=== PATIENT | female | born 1955 | race Caucasian/White ===

== ENCOUNTER 2023-09-27 13:50 | Emergency (ER) | payer MEDICARE, SELFPAY ==
[2023-09-27 14:06] VITALS: BP 108/78; PULSE 121; RESP 21; TEMP 36.7; O2SAT 96; BMI 42.0
[2023-09-27 14:20] VITALS: BP 135/85; PULSE 109; RESP 20; O2SAT 95
[2023-09-27 14:40] VITALS: BP 136/81; PULSE 104; RESP 20; O2SAT 95
--- NOTE | 2023-09-27 15:01 | HMH.EDGENADL ---
Discharge Plan Disposition Patient Disposition: Home, Self-Care Prescriptions Prescriptions: New cefdinir 300 mg capsule 300 mg PO BID 10 Days Qty: 20 0RF No Action metformin 1,000 mg Tablet 1,000 mg PO BID nitrofurantoin monohyd/m-cryst [Macrobid] 100 mg Capsule 100 mg PO BID Rx Instructions: must administer with a meal/food atorvastatin 40 mg Tablet 40 mg PO DAILY tramadol 50 mg Tablet 50 mg PO Q6H PRN (Reason: Pain) famotidine 20 mg Tablet 20 mg PO DAILY naproxen 500 mg Tablet,Delayed Release (Dr/Ec) 500 mg PO BID PRN (Reason: Pain) methimazole 5 mg Tablet 5 mg PO DAILY hydrochlorothiazide 25 mg Tablet 25 mg PO BID losartan 100 mg Tablet 100 mg PO DAILY ferrous gluconate 324 mg (37.5 mg iron) Tablet 324 mg PO DAILY Referrals Follow up/Referrals: Roni Schmitt MD [Primary Care Provider] - See instructions Activity Restrictions/Add. Instructions Additional Instructions/Restrictions: No evidence of an emergent medical condition associated with your diabetes today. Specifically no evidence of DKA. You still have urinary tract infection with the tenderness of your kidney this is consistent with pyelonephritis. Nitrofurantoin does not get good kidney penetration and I would recommend you stop that medication and start the new medication cefdinir. Follow-up with your primary care doctor in 2 to 3 days for your urine culture results. Return to the emergency room with high fever or any other concerns. Clinical Impressions Clinical Impression: Hyperglycemia, Dehydration, Pyelonephritis Instructions Patient Instructions: DI for Hyperglycemia -- Adult Discharge ED Provider: Yoana Espinoza Adult HPI General Chief complaint: Hyper/Hypoglycemia Stated complaint: High blood sugar Time Seen by Provider: 09/27/23 14:55 Mode of Arrival: Ambulatory Source of Information: Patient and Spouse Limitations: No Limitations Description of Symptoms (Recalled from ER Triage Doc. by RN): Pt. states she took her blood sugar this morning and it was 350 and then again at 1 pm and it was over 500. History of Present Illness HPI narrative: Patient is a 68-year-old female with a history of diabetes last A1c over 7 but has been poorly controlled for extended period of time presents today with dizziness and lightheadedness and elevated blood sugar that was above her ability to read at home today. States she has had bronchitis and urinary tract infection earlier this month also has been on steroids. She is only on metformin at the moment they have been intermittently discussing using insulin but because her A1c went from 9 down to 7 her primary care doctor had been holding off. She has had increased urine output and feeling dizzy over the last several days. She denies any significant abdominal pain chest pain shortness of breath fevers chills etc. Related Data Home Medications Medication Instructions Recorded Confirmed atorvastatin 40 mg tablet 40 mg PO DAILY 09/27/23 09/27/23 famotidine 20 mg tablet 20 mg PO DAILY 09/27/23 09/27/23 ferrous gluconate 324 mg (37.5 mg 324 mg PO DAILY 09/27/23 09/27/23 iron) tablet hydrochlorothiazide 25 mg tablet 25 mg PO BID 09/27/23 09/27/23 losartan 100 mg tablet 100 mg PO DAILY 09/27/23 09/27/23 metformin 1,000 mg tablet 1,000 mg PO BID 09/27/23 09/27/23 methimazole 5 mg tablet 5 mg PO DAILY 09/27/23 09/27/23 naproxen 500 mg tablet,delayed 500 mg PO BID PRN Pain 09/27/23 09/27/23 release nitrofurantoin 100 mg PO BID 09/27/23 09/27/23 monohydrate/macrocrystals 100 mg capsule (Macrobid) tramadol 50 mg tablet 50 mg PO Q6H PRN Pain 09/27/23 09/27/23 Previous Rx's Medication Instructions Recorded cefdinir 300 mg capsule 300 mg PO BID 10 days #20 caps 09/27/23 Allergies Allergy/AdvReac Type Severity Reaction Status Date / Time No Known Allergies Allergy Verified 09/27/23 14:11 [facility] Disclaimer: The information contained in this section may have been updated after the patient was seen, as this information can be updated by other users. Medical History (Updated 09/27/23 @ 17:04 by Maryan Renee MD) Arthritis Diabetes Hyperlipidemia Hypertension UTI (urinary tract infection) Surgical History (Updated 09/27/23 @ 14:14 by Anisa Somers RN) History of hysterectomy History of total right knee replacement Social History (Updated 09/27/23 @ 14:14 by Anisa Somers RN) Smoking Status: Former smoker alcohol intake: never current occupational status: unemployed Travel in the last 8 weeks: None ROS Obtained: Yes All systems reviewed & no additional complaints except as documented Physical Exam General General appearance: alert Respiratory Respiratory exam: Present normal lung sounds bilaterally Cardiovascular Cardiovascular exam: Present tachycardia Abdominal Exam Abdominal exam: Present soft; Absent distention or tenderness Back Exam Back exam: Present CVA tenderness (L) Neurological Exam Neurological exam: Present alert and oriented X3 Medical Decision Making Yoni Inquiry Pt receiving controlled substance: No Vital Signs: 09/27/23 14:06 09/27/23 14:20 09/27/23 14:40 Temperature 98.0 F Temperature Source Oral Pulse Rate 109 H 104 H Pulse Rate [Right Brachial] 121 H Respiratory Rate 21 20 20 Blood Pressure 135/85 136/81 Blood Pressure [Right Arm] 108/78 L Blood Pressure Mean 98 93 Blood Pressure Mean [Right Arm] 88 Blood Pressure Source [Right Arm] Automatic Cuff Blood Pressure Position [Right Arm] Sitting 02 Sat by Pulse Oximetry 96 95 95 Oxygen Delivery Method Room Air Lab Data Lab results reviewed: Yes I reviewed the patient's lab results. Lab Results 09/27/23 15:00: VBG pH 7.36, VBG pCO2 49.1, VBG pO2 29.7, VBG HCO3 27.0, VBG Total CO2 28.5 H, VBG O2 Saturation 56.4, VBG Base Excess 1.5 09/27/23 15:09: WBC 10.9 H, RBC 5.17, Hgb 14.4, Hct 43.6, MCV 84.4, MCH 27.8, MCHC 33.0, RDW 15.1, Plt Count 194, MPV 9.5, Neut % (Auto) 65.2, Lymph % (Auto) 22.9, [place] % (Auto) 5.6, Eos % (Auto) 5.1, Baso % (Auto) 1.1, Neut # (Auto) 7.1, Lymph # (Auto) 2.5, [place] # (Auto) 0.6, Eos # (Auto) 0.6 H, Baso # (Auto) 0.1, Sodium 134 L, Potassium 3.9, Chloride 93 L, Carbon Dioxide 32 H, Anion Gap 12.9, BUN 16, Creatinine 1.00, Estimated Creat Clear 44, Estimated GFR 55 L, Est GFR ( Amer) 67, Glucose 264 H, Calcium 9.7, Phosphorus 3.2, Magnesium 1.3 L, Total Bilirubin 1.0, AST 42 H, ALT 47, Alkaline Phosphatase 120, Total Protein 8.3 H, Albumin 4.7, Globulin 3.6 H, Albumin/Globulin Ratio 1.3 09/27/23 15:12: Urine Color Yellow, Urine Appearance Clear, Urine pH 6.0, Ur Specific [place] 1.020, Urine Protein 1+, Urine Glucose (UA) 2+, Urine Ketones Negative, Urine Blood Negative, Urine Nitrate Negative, Urine Bilirubin 1+ A, Urine Urobilinogen 0.2, Ur Leukocyte Esterase 2+ A, Urine RBC None, Urine WBC 20-50, Ur Squamous Epith Cells 5-10, Urine Bacteria Trace 09/27/23 15:09 09/27/23 15:09 Orders (Tests/Meds): ED MEDICATIONS Generic Name Dose Route Start Last Admin Trade Name Freq PRN Reason Stop Dose Admin Cefdinir 300 mg 09/27/23 17:03 Cefdinir 300mg Capsule PO 09/27/23 17:04 ONCE ONE Discontinued Medications Generic Name Dose Route Start Last Admin Trade Name Freq PRN Reason Stop Dose Admin Lactated Ringer's 1,000 mls @ 999 mls/hr 09/27/23 15:00 09/27/23 15:08 Lactated Ringer's 1000 Ml Bag IV 09/27/23 16:00 999 mls/hr .Q1H1M SOPHY Administration Ondansetron HCl 4 mg 09/27/23 15:00 09/27/23 15:08 Ondansetron 4mg/2ml Vial IV 09/27/23 15:01 4 mg ONCE ONE Administration ORDERS Category Date Time Status CBC w/Auto Diff [Complete Blood Count Auto Diff] Stat Lab 09/27/23 15:09 Completed CMP [Comprehensive Metabolic Panel] Stat Lab 09/27/23 15:09 Completed Magnesium Stat Lab 09/27/23 15:09 Completed Phosphorous Stat Lab 09/27/23 15:09 Completed UA [Urinalysis and Microscopic] Stat Lab 09/27/23 15:12 Completed Urine Culture Stat Micro 09/27/23 15:12 Received Venous Blood Gas Stat RT 09/27/23 15:00 Completed Medical Decision Narrative: Patient is a well-appearing 68-year-old female presenting today with hyperglycemia. Will get blood test to rule out DKA. Her lightheadedness is likely secondary to dehydration from osmotic diuresis. IV fluids Zofran have been administered. She does have some left CVA tenderness recently had urinary tract infection will obtain a urinalysis to make sure she does not have superimposed pyelonephritis. She is mildly tachycardic I suspect from dehydration she does not appear septic at the moment but will reassess. Reassessment 5:04 PM patient feeling much better. Urinalysis demonstrates a persistent urinary tract infection with a CVA tenderness this is consistent with pyelonephritis. She has been on nitrofurantoin this does not get good kidney penetration and I advised that she stop this medication and initiate cefdinir which I prescribed. First dose was given in the emergency department. No evidence of sepsis. No evidence of DKA on labs. Patient will follow-up with primary care doctor in 2 to 3 days for urine culture results and return to the emergency department any worsening symptoms including fever etc. Critical Care Critical Care Time Critical Care Time: No
[2023-09-27] MEDS: LACTATED RINGERS 1000ML 1,000 ML 999 ML IV (15:08)
[2023-09-27] MEDS: ONDANSETRON 4MG/2ML VIAL 4 MG IV (15:08)
[2023-09-27 15:18] LABS: Microscopic, Urine URINE MICROSCOPIC (MICROSCOPIC)
[2023-09-27 15:21] LABS: VBG Base Excess 1.5 mmol/L (-2.4-2.3); VBG Oxygen Saturation 56.4 % (50-70); VBG PCO2 49.1 mmol/L (35-51); VBG PH 7.36 mmol/L (7.31-7.41); VBG PO2 29.7 mmol/L (28-40); VBG Total CO2 28.5 mmol/L (23-27)
[2023-09-27 15:25] LABS: Chloride 93 mmol/L (98-107)
[2023-09-27 15:26] LABS: Appearance,Urine CLEAR (Clear); Blood, Urine Negative (Negative); Color,Urine YELLOW (Yellow); Glucose,Urine (UA) 2+ (Negative); Ketones,Urine Negative (Negative); Leukocyte Esterase,Urine 2+ (Negative); Nitrate,Urine Negative (Negative); Protein,Urine 1+ (Negative); Urobilinogen,Urine 0.2 EU/dl (0.2)
[2023-09-27 15:26] LABS: Potassium 3.9 mmoL/L (3.5-5.1); Sodium 134 mmol/L (136-145)
[2023-09-27 15:27] LABS: Bilirubin,Urine 1+ (Negative)
[2023-09-27 15:28] LABS: Alanine Aminotransferase 47 U/L (12-78); Alkaline Phosphatase 120 U/L (38-126); Anion Gap 12.9 mEq/L (5-15); Aspartate Amino Transferase 42 U/L (14-36); Blood Urea Nitrogen 16 mg/dl (7-17); Carbon Dioxide 32 mmol/L (22.0-30.0); Creatinine Clearance Estimated 44 mL/min (50-200); Estimated Glomerular Filt Rate 55 ml/min (>60); GFR (African American) 67 ML/MIN (>60)
[2023-09-27 15:29] LABS: Albumin Level 4.7 g/dl (3.5-5.0); Albumin/Globulin Ratio 1.3 (1.1-1.8); Calcium 9.7 mg/dl (8.4-10.2); Globulin 3.6 g/dL (1.3-3.2); Glucose 264 mg/dl (74-100); Magnesium 1.3 mg/dl (1.6-2.3); Phosphorous 3.2 mg/dl (2.5-4.5); Total Protein,Serum 8.3 g/dl (6.3-8.2)
[2023-09-27 15:31] LABS: Basophils # 0.1 K/mm3 (0-0.2); Basophils % 1.1 % (0.1-2.0); Eosinophils # 0.6 K/mm3 (0.0-0.4); Eosinophils % 5.1 % (0.1-12.0); Hematocrit 43.6 % (37.0-47.0); Hemoglobin 14.4 g/dL (12.2-16.2); Lymphocytes # 2.5 K/mm3 (0.7-4.5); Lymphocytes % 22.9 % (10-50); Mean Corpuscular Hemoglobin 27.8 pg (27.0-31.2); Mean Corpuscular Volume 84.4 fl (81-99); Mean Platelet Volume 9.5 fl (7.4-10.4); Monocytes # 0.6 K/mm3 (0.1-1.0); Monocytes % 5.6 % (1.7-9.3); Neutrophils # 7.1 K/mm3 (1.8-7.8); Neutrophils % 65.2 % (37.0-80.0); Platelet Count 194 K/mm3 (142-424); Red Blood Count 5.17 M/mm3 (4.20-5.40); Red Cell Distribution Width 15.1 % (11.5-17.5); White Blood Count 10.9 K/mm3 (4.8-10.8)
[2023-09-27 15:36] LABS: Bacteria,Urine Trace /lpf; WBC,Urine 20-50 #/hpf (0-3)
[2023-09-27 17:05] VITALS: BP 140/70; PULSE 72; RESP 20; TEMP 36.6; O2SAT 98
[2023-09-27] MEDS: CEFDINIR 300MG CAPSULE 300 MG PO (17:08)
--- NOTE | 2023-10-03 08:42 | PC.NURSE ---
NTD with urine culture results per , pt was dc with cefdinir
== END 2023-09-27 17:11 | disposition home or self-care (01) ==
PROVIDERS: Student in an Organized Health Care Education/Training Program; Emergency Provider Emergency Medicine; PCP Family Medicine
DX: E11.65 Type 2 diabetes mellitus with hyperglycemia (principal); E86.0 Dehydration; N12 Tubulo-interstitial nephritis, not specified as acute or chronic; R42 Dizziness and giddiness; E78.5 Hyperlipidemia, unspecified; I10 Essential (primary) hypertension; R00.0 Tachycardia, unspecified; Z87.891 Personal history of nicotine dependence
CPT/HCPCS: 80053; 81001; 82803; 83735; 84100; 85025; 87086; 96361; 96374; 99285; J2405

== ENCOUNTER 2024-12-06 10:11 | Emergency (ER) | payer MEDICARE, SELFPAY ==
--- NOTE | 2024-12-06 10:18 | ECG_ITS ---
APPROVED REPORT Exam: Resting ECG HR:108 bpm ECG Measurements Heart Rate 108 AXES TN 165 P 69 QRSd 146 QRS -53 QT 361 T 44 QTc 425 Conclusion SINUS TACHYCARDIA RIGHT BUNDLE BRANCH BLOCK [120+ ms QRS DURATION, UPRIGHT V1, 40+ ms S IN I/aVL/V4/V5/V6] LEFT ANTERIOR FASCICULAR BLOCK [QRS AXIS <= -45, QR IN I, RS IN II] POSSIBLE ANTERIOR MYOCARDIAL INFARCTION , PROBABLY OLD [30 ms Q WAVE IN V3/V4, OR R < 0.2 mV IN V4] INFERIOR MYOCARDIAL INFARCTION , PROBABLY OLD [40+ ms Q WAVE AND/OR ST/T ABNORMALITY IN II/aVF] No STEMI Electronically signed by : HORTENCIA PATEL, 12/07/2024 06:23:55
--- NOTE | 2024-12-06 10:18 | XR_ITS ---
FINAL REPORT CLINICAL HISTORY: palpitations, SOA FINDINGS: No acute pulmonary density is evident. There is no evidence of effusion or other pleural disease. The mediastinum has a normal appearance. The cardiac silhouette is unremarkable. IMPRESSION: Unremarkable chest exam. Reviewed, Interpreted and Dictated by Sonal Huddleston MD Transcribed by Kellie Gallardo Authenticated and [facility]
--- NOTE | 2024-12-06 10:20 | ED_ITS ---
Discharge Plan Disposition Patient Disposition: Home, Self-Care Condition: Good Prescriptions Prescriptions: New propranolol 20 mg tablet 20 mg PO BID Qty: 60 1RF propylthiouracil 50 mg tablet 100 mg PO Q8H 30 Days Qty: 180 1RF No Action Tradjenta 5 mg tablet PO Patient Comments: TAKE ONE (1) TABLET EVERY DAY BY ORAL ROUTE. ferrous sulfate 325 mg (65 mg iron) tablet 325 mg PO DAILY metformin 1,000 mg Tablet 1,000 mg PO BID tramadol 50 mg Tablet 50 mg PO Q6H PRN (Reason: Pain) famotidine 20 mg Tablet 20 mg PO DAILY naproxen 500 mg Tablet,Delayed Release (Dr/Ec) 500 mg PO BID PRN (Reason: Pain) methimazole 5 mg Tablet 5 mg PO DAILY hydrochlorothiazide 25 mg Tablet 25 mg PO BID losartan 100 mg Tablet 100 mg PO DAILY Referrals Follow up/Referrals: Salvatore Mendiola APRN [Primary Care Provider] - See instructions Activity Restrictions/Add. Instructions Additional Instructions/Restrictions: You were evaluated in the emergency department today. Please last picker your prescriptions and take as prescribed. Follow-up very closely with your primary care provider as well as with endocrinology for further evaluation and management. Return to the emergency department for new or worsening symptoms. Clinical Impressions Clinical Impression: Hyperthyroidism, Hypomagnesemia Stand Alone Forms Stand Alone Forms: Work/School Release Instructions Patient Instructions: DI for Hyperthyroidism, DI for Hypomagnesemia Print Language Print Language: Cuban Discharge ED Provider: [facility] General Adult HPI General Chief complaint: Weakness Stated complaint: SOA jaw tightness elevated BP/Pulse Time Seen by Provider: 12/06/24 10:18 History of Present Illness HPI narrative: This patient is a 69-year-old female with a history of hyperthyroidism, hypertension, hyperlipidemia, diabetes, and arthritis presenting to the emergency department for evaluation with concern for palpitations, shortness of breath, and fatigue for the last couple of days. Patient states that she has just been feeling like her heart is fluttering in her chest and like she feels out of breath. She states that she is subconsciously gasping for air without realizing it. She also notes some sinus pressure/congestion as well as diarrhea. She has taken [id number] sinus headache medication at home. She admits to chest pressure but denies true chest pain, abdominal pain, nausea, vomiting, leg swelling. She also denies any history of blood clots or clotting disorders. Related Data Home Medications ?Medication ?Instructions ?Recorded ?Confirmed famotidine 20 mg tablet 20 mg PO DAILY 09/27/23 09/27/23 hydrochlorothiazide 25 mg tablet 25 mg PO BID 09/27/23 09/27/23 losartan 100 mg tablet 100 mg PO DAILY 09/27/23 09/27/23 metformin 1,000 mg tablet 1,000 mg PO BID 09/27/23 09/27/23 methimazole 5 mg tablet 5 mg PO DAILY 09/27/23 09/27/23 naproxen 500 mg tablet,delayed 500 mg PO BID PRN Pain 09/27/23 09/27/23 release tramadol 50 mg tablet 50 mg PO Q6H PRN Pain 09/27/23 09/27/23 ferrous sulfate 325 mg (65 mg 325 mg PO DAILY 06/21/24 iron) tablet linagliptin 5 mg tablet (Tradjenta) mg PO 06/21/24 Previous Rx's ?Medication ?Instructions ?Recorded propranolol 20 mg tablet 20 mg PO BID #60 tabs 12/06/24 propylthiouracil 50 mg tablet 100 mg (2 x 50 mg) PO Q8H 30 days 12/06/24 #180 tabs Allergies Allergy/AdvReac Type Severity Reaction Status Date / Time No Known Allergies Allergy Verified 06/21/24 14:37 [facility] Disclaimer: The information contained in this section may have been updated after the patient was seen, as this information can be updated by other users. Medical History Diabetes Arthritis UTI (urinary tract infection) Hyperlipidemia Hypertension Surgical History History of total right knee replacement History of hysterectomy Social History Smoking Status: Never smoker alcohol intake: never current occupational status: unemployed Travel in the last 8 weeks: None Have you lived/traveled outside [place] in past 30 days?: No Contact w/someone who lives/traveled outside US past 30 days?: No Exposure to someone with infectious disease in past 14 days?: No Do you have a fever (greater than 100.4 F or 38 C)?: No Have you tested positive for COVID-19: No Exposed to someone with COVID-19 in past 14 days?: No Do you have a sore throat?: No Do you have a cough?: No Do you have any weakness?: No Do you have any diarrhea?: No Are you experiencing any unusual bleeding?: No Do you have any muscle aches/pain?: No Do you have any abdominal pain?: No Are you experiencing loss of taste or smell?: No Other Medical History Have you received the Pneumonia Vaccine: No ROS Obtained: Yes All systems reviewed & no additional complaints except as documented Physical Exam General General appearance: alert and in no apparent distress Head Head exam: atraumatic and normocephalic Eye Eye exam: Present normal appearance, PERRL and EOMI ENT ENT exam: Present normal exam, normal oropharynx, mucous membranes moist and normal external ear exam Neck Neck exam: Present normal inspection, full ROM and trachea midline; Absent tenderness Chest Chest inspection: Present normal inspection and symmetric chest wall rise; Absent tenderness Respiratory Respiratory exam: Present normal lung sounds bilaterally; Absent respiratory distress, wheezes, stridor or accessory muscle use Cardiovascular Cardiovascular exam: Present normal rhythm and tachycardia Abdominal Exam Abdominal exam: Present soft; Absent distention, tenderness or guarding Extremities Exam Extremities exam: Present normal inspection, full ROM and normal capillary refill; Absent tenderness or edema Back Exam Back exam: Present normal inspection and full ROM; Absent tenderness Neurological Exam Neurological exam: Present alert, oriented X3, CN II-XII intact and normal gait; Absent motor sensory deficit Psychiatric Psychiatric exam: Present normal affect and normal mood Skin Skin exam: Present warm and dry Medical Decision Making Medical Records Medical records reviewed: Yes I reviewed the patient's medical records. Screening: Per USPSTF and CDC recommendations, given the prevalence of disease in our region, it is our hospital?s policy to screen for HIV and viral Hepatitis for all patients aged 18 and over and those with ongoing risk factors. Yoni Inquiry Pt receiving controlled substance: No Vital Signs: 12/06/24 10:21 12/06/24 10:21 12/06/24 11:00 Temperature 98.1 F Temperature Source Oral Pulse Rate 111 H 114 H Pulse Rate [Left] 109 H Respiratory Rate 20 18 Blood Pressure 174/87 H 172/98 H Blood Pressure [Left Arm] 174/87 H Blood Pressure Mean [Left Arm] 116 Blood Pressure Source Blood Pressure Position 02 Sat by Pulse Oximetry 96 94 L 94 L Oxygen Delivery Method Room Air Room Air Oxygen Flow Rate (LPM) 12/06/24 11:30 12/06/24 12:00 12/06/24 12:24 Temperature 97.6 F Temperature Source Oral Pulse Rate 105 H 99 H 90 Pulse Rate [Left] Respiratory Rate 18 Blood Pressure 165/94 H 172/91 H 172/91 H Blood Pressure [Left Arm] Blood Pressure Mean [Left Arm] Blood Pressure Source Automatic Cuff Blood Pressure Position Sitting 02 Sat by Pulse Oximetry 94 L 94 L Oxygen Delivery Method Nasal Cannula Room Air Oxygen Flow Rate (LPM) 2 Lab Data Lab results reviewed: Yes I reviewed the patient's lab results. Lab Results 12/06/24 10:21: SARS-CoV-2 (PCR) Not detected, Influenza A Untype (PCR) Not detected, Influenza Type B (PCR) Not detected 12/06/24 10:24: WBC 7.8, RBC 5.19, Hgb 13.4, Hct 42.1, MCV 81.1, MCH 25.8 L, MCHC 31.8, RDW 13.4, Plt Count 249, MPV 11.5 H, Neut % (Auto) 54.3, Lymph % (Auto) 32.8, [place] % (Auto) 9.5 H, Eos % (Auto) 1.7, Baso % (Auto) 1.3, Neut # (Auto) 4.2, Lymph # (Auto) 2.6, [place] # (Auto) 0.7, Eos # (Auto) 0.1, Baso # (Auto) 0.1, D-Dimer 0.47, Sodium 137, Potassium 4.0, Chloride 97 L, Carbon Dioxide 29, Anion Gap 15.0, BUN 16, Creatinine 1.00, Estimated Creat Clear 43, E stimated GFR 55 L, Est GFR ( Amer) 67, Glucose 138 H, Calcium 9.8, Phosphorus 2.8, Magnesium 1.4 L, Total Bilirubin 0.5, AST 52 H, ALT 52, Alkaline Phosphatase 71, Troponin I < 0.01, NT-Pro-B Natriuret Pep 22.8, Total Protein 8.0, Albumin 4.7, Globulin 3.3 H, Albumin/Globulin Ratio 1.4, Lipase 200, TSH < 0.02 L, Thyroxine (T4) 15.5 H, HCV Ab NAYANA w/Rflx PCR Qn Negative, HIV Ag/Ab Combo Qual Negative 12/06/24 10:24 12/06/24 10:24 Orders (Tests/Meds): ED MEDICATIONS Discontinued Medications Generic Name Dose Route Start Last Admin Trade Name Kristoferq PRN Reason Stop Dose Admin Lactated Ringer's 1,000 mls @ 999 mls/hr 12/06/24 10:47 12/06/24 10:58 Lactated Ringer's 1000 Ml Bag IV 12/06/24 11:47 999 mls/hr .Q1H1M ONE Administration Magnesium Sulfate 2 gm in 50 mls @ 50 mls/hr 12/06/24 10:55 12/06/24 10:59 Magnesium Sulfate 2gm/50ml Premix IV 12/06/24 11:54 50 mls/hr ONCE ONE Administration Propranolol HCl 20 mg 12/06/24 11:30 12/06/24 11:47 Propranolol 20mg Tab PO 12/06/24 11:31 20 mg ONCE ONE Administration Propylthiouracil 100 mg 12/06/24 11:29 12/06/24 11:47 Propylthiouracil 50mg Tablet PO 12/06/24 11:30 100 mg ONCE ONE Administration ORDERS Category Date Time Status CXR 2 view (NOT portable) [XR chest 2V] Stat Exams 12/06/24 10:18 Completed BNP [NT Pro Brain Natriuretic Pep.] Stat Lab 12/06/24 10:24 Completed Complete Blood Count Auto Diff Stat Lab 12/06/24 10:24 Completed Comprehensive Metabolic Panel Stat Lab 12/06/24 10:24 Completed D-Dimer Stat Lab 12/06/24 10:24 Completed HIV Combo Stat Lab 12/06/24 10:24 Completed Hepatitis C Ab Qual. W/ RFX Stat Lab 12/06/24 10:24 Completed Lipase Stat Lab 12/06/24 10:24 Completed MAG [Magnesium] Stat Lab 12/06/24 10:24 Completed PHOS [Phosphorous] Stat Lab 12/06/24 10:24 Completed Rapid PCR Covid and Flu A/B Stat Lab 12/06/24 10:21 Completed T4 (Thyroxine) Stat Lab 12/06/24 10:24 Completed TSH [Thyroid Stimulating Hormone] Stat Lab 12/06/24 10:24 Completed Trop I [Troponin I] Stat Lab 12/06/24 10:24 Completed Troponin I Q3H Lab 12/06/24 13:30 Ordered Troponin I Q3H Lab 12/06/24 16:30 Ordered ECG Data Tracing #1: I reviewed this ECG and interpreted as documented below: Sinus tachycardia with a ventricular to 108 bpm. Right bundle branch block. Left anterior fascicular block. No acute ST changes concerning for STEMI ECG initial impression date: 12/06/24 ECG initial impression time: 10:19 Medical Decision Narrative: In summary, this patient is a 69-year-old female presenting to the Emergency Department for evaluation of palpitations, shortness of breath, chest pressure, congestion, and diarrhea. Differential diagnoses considered include but are not limited to viral syndrome, pneumonia, ACS, dysrhythmia, hyperthyroidism, electrolyte derangements, PE. Ruling out the most morbid conditions drove assessment. It should be noted patient's history includes hyperthyroidism, hypertension, hyperlipidemia which may or may not be at goal therapy. This complicates all aspects of care by increasing patient's risk for morbidity. I reviewed patient's past medical records and noted prior ENT evaluation with concern for thyroid nodule and thyrotoxicosis. On exam, the patient is sitting upright in no acute distress. She is mildly tachycardic and hypertensive, but otherwise vitals are reassuring with no significant tachypnea or hypoxia. No increased work of breathing. Cardiopulmonary dam is reassuring with normal lung sounds. Abdominal exam is benign. No significant calf pain or swelling. Workup included CBC, CMP, TSH, T4, troponin, BNP, magnesium, phosphorus, viral swab, chest x-ray, EKG. PERC criteria cannot be used to exclude PE given age and heart rate greater than 100, but she is low risk based on Wells score. Given this, D-dimer was also obtained. EKG obtained demonstrates sinus tachycardia, right bundle branch block, left anterior fascicular block but is otherwise reassuring. I independently interpreted x-ray prior to the radiologist read and noted no focal consolidationconcerning for pneumonia, no pulmonary edema . Please see their read for final interpretation. Labs were obtained that demonstrated reassuring CBC with no significant leukocytosis or anemia, chemistry demonstrates hypomagnesemia and hyperthyroid with an undetectable TSH and high T4. AST is very mildly elevated white, which is nonspecific. Patient was given IV repletion of magnesium as well as a bolus of IV fluids. She notes that she was taken off methimazole because it was causing anemia, however her blood counts today are normal. She is not currently on anything for control of hypothyroidism and states that she does not have endocrine follow-up until January. I feel that she would benefit from being started on medication for hyperthyroidism. She agrees to try propranolol and PTU. These were prescribed, with first dose is given here tolerated well without significant issue.. I considered admission for management of hyperthyroidism, however given that the patient is well-appearing with reassuring exam, labs, vitals, and improvement in symptoms, I feel she is appropriate for discharge with close follow-up with PCP and endocrinology. Strict return precautions were given Critical Care Critical Care Time Critical Care Time: Yes Attestation: On 12/06/24, the high probability of a clinically significant, sudden or life threatening deterioration of the following system(s) required my full and direct attention, intervention and personal management. The time I documented below is in addition to time spent performing reported procedures but includes the following listed in this critical care notation. Total Time Total Critical Care Time: 30
[2024-12-06 10:21] VITALS: BP 174/87; PULSE 109; PULSE 111; RESP 18; RESP 20; TEMP 36.7; O2SAT 94; O2SAT 96; BMI 42.0
[2024-12-06 10:25] LABS: Coronavirus 19, PCR Not Detected (NotDetected); Influenza A, PCR Not Detected (NotDetected); Influenza B, PCR Not Detected (NotDetected)
[2024-12-06 10:38] LABS: Basophils # 0.1 K/mm3 (0-0.2); Basophils % 1.3 % (0.1-2.0); Eosinophils # 0.1 K/mm3 (0.0-0.4); Eosinophils % 1.7 % (0.1-12.0); Hematocrit 42.1 % (37.0-47.0); Hemoglobin 13.4 g/dL (12.2-16.2); Lymphocytes # 2.6 K/mm3 (0.7-4.5); Lymphocytes % 32.8 % (10-50); Mean Corpuscular HGB Conc 31.8 g/dL (31.8-35.4); Mean Corpuscular Hemoglobin 25.8 pg (27.0-31.2); Mean Corpuscular Volume 81.1 fl (81-99); Mean Platelet Volume 11.5 fl (7.4-10.4); Monocytes # 0.7 K/mm3 (0.1-1.0); Monocytes % 9.5 % (1.7-9.3); Neutrophils # 4.2 K/mm3 (1.8-7.8); Neutrophils % 54.3 % (37.0-80.0); Platelet Count 249 K/mm3 (142-424); Red Blood Count 5.19 M/mm3 (4.20-5.40); Red Cell Distribution Width 13.4 % (11.5-17.5); White Blood Count 7.8 K/mm3 (4.8-10.8)
[2024-12-06 10:45] LABS: Albumin Level 4.7 g/dl (3.5-5.0); Chloride 97 mmol/L (98-107); Sodium 137 mmol/L (136-145)
[2024-12-06 10:47] LABS: Blood Urea Nitrogen 16 mg/dl (7-17); Creatinine Clearance Estimated 43 mL/min (50-200); Estimated Glomerular Filt Rate 55 ml/min (>60); GFR (African American) 67 ML/MIN (>60)
[2024-12-06 10:48] LABS: Alanine Aminotransferase 52 U/L (12-78); Albumin/Globulin Ratio 1.4 (1.1-1.8); Alkaline Phosphatase 71 U/L (38-126); Aspartate Amino Transferase 52 U/L (14-36); Bilirubin,Total 0.5 mg/dl (0.2-1.3); Calcium 9.8 mg/dl (8.4-10.2); Carbon Dioxide 29 mmol/L (22.0-30.0); Globulin 3.3 g/dL (1.3-3.2); Glucose 138 mg/dl (74-100); Lipase 200 U/L (23-300); Magnesium 1.4 mg/dl (1.6-2.3)
[2024-12-06 10:49] LABS: Phosphorous 2.8 mg/dl (2.5-4.5)
[2024-12-06 10:58] LABS: NT Pro Brain Natriuretic Pep. 22.8 pg/mL (0-125)
[2024-12-06] MEDS: LACTATED RINGERS 1000ML 1,000 ML 999 ML IV (10:58)
[2024-12-06] MEDS: MAGNESIUM SULFATE IN WATER 2 GM/50 ML PIGGYBACK IV (10:59)
[2024-12-06 11:00] VITALS: BP 172/98; PULSE 114; O2SAT 94
[2024-12-06 11:03] LABS: Troponin I < 0.01 ng/ml (0.00-0.034)
[2024-12-06 11:05] LABS: T4 (Thyroxine) 15.5 ug/dl (5.53-11.0)
[2024-12-06 11:07] LABS: D-Dimer 0.47 ug/mL (0.0-0.5)
[2024-12-06 11:19] LABS: Thyroid Stimulating Hormone < 0.02 uIU/mL (0.465-4.68)
[2024-12-06 11:30] VITALS: BP 165/94; PULSE 105; O2SAT 94
[2024-12-06 11:41] LABS: HIV Combo NEGATIVE (Negative)
[2024-12-06] MEDS: PROPRANOLOL 20MG TAB 20 MG PO (11:47)
[2024-12-06] MEDS: PROPYLTHIOURACIL 50MG TABLET 100 MG PO (11:47)
[2024-12-06 11:49] LABS: Hepatitis C Ab Qual. W/ RFX NEGATIVE (Negative)
[2024-12-06 12:00] VITALS: BP 172/91; PULSE 99; O2SAT 94
--- NOTE | 2024-12-06 12:14 | PC.NURSE ---
pt reports feeling better after medication and fluids.
[2024-12-06 12:24] VITALS: BP 172/91; PULSE 90; RESP 18; TEMP 36.4; O2SAT 95
== END 2024-12-06 12:32 | disposition home or self-care (01) ==
PROVIDERS: Emergency Provider Emergency Medicine; PCP Nurse Practitioner Family
DX: E83.42 Hypomagnesemia (principal); E05.90 Thyrotoxicosis, unspecified without thyrotoxic crisis or storm; R06.02 Shortness of breath; R00.2 Palpitations; R53.83 Other fatigue; R09.81 Nasal congestion; R19.7 Diarrhea, unspecified; J34.89 Other specified disorders of nose and nasal sinuses; R07.89 Other chest pain; I10 Essential (primary) hypertension; E78.5 Hyperlipidemia, unspecified; E11.9 Type 2 diabetes mellitus without complications; M19.90 Unspecified osteoarthritis, unspecified site
CPT/HCPCS: 71046; 80053; 83690; 83735; 83880; 84100; 84436; 84443; 84484; 85025; 85378; 86803; 87389; 87636; 93005; 96361; 96365; 99291; J3475; J7120